=== PATIENT | male | born 1970 | race African-American/Black ===

== ENCOUNTER 2021-05-14 19:22 | Emergency (ER) | payer OTHER ==
[~2021-05-14] VITALS: Ht 193 cm; Wt 203.2 kg
--- NOTE | ~2021-05-14 | EMS ---
[address] [address] EMS Patient Care Report Name: LUIS M STONER Room #: REG Naeem#: [id number] Admission: 05/14/21 Attend Phys: Discharge: Date of : 66 Report #: [id number] THIS REPORT FOR: //name// Report Transmitted: 05/14/2021 20:01 EMS Care Summary [place], [place]/[facility] Incident [id number] @ 05/14/2021 18:40 Incident Location [address] [place] [id number] Patient LUIS M STONER Male, 50 Years 1970 Patient Address [address] [place] [id number] Patient History Hypertension (HTN),Type 2 Diabetes, Patient Allergies No known allergies, Patient Medications Insulin, Unknown, Chief Complaint HEADACHE Disposition Transported No Lights/[place] Dispatch Reason Diabetic Problem Transported To [facility] Narrative M36 dispatched on a diabetic problems. M36 arrived to find PT laying supine on front porch with P41 at PT side. PT stated diabetic problems as chief complaint. PT stated he "felt like his sugar got low, vision got spots, sat down on the steps because I was dizzy then I fell back." PT stated family on [address] [address] EMS Patient Care Report Name: LUIS M STONER Room #: REG Naeem#: [id number] Admission: 05/14/21 Attend Phys: Discharge: Date of : 66 Report #: [id number] scene gave PT "sugar water." PT denied neck pain. PT head negative for DCAPBTLS. PT stated main concern was headache. PT rated pain 10/10. PT described headache as spinning. PT denied being on blood thinners. PT assisted to stand and take steps to stretcher. PT sat down and was secured with seatbelts. PT stated the "last time I felt like this my sugar was low." PT denied loss of consciousness. PT stated use of oxygen with CPAP and as needed at home. PT stated he uses 5 lpm when he uses it. PT advised of high volume status at . PT chose to go to closest facility. PT vitals monitored en route including groundwater monitoring technician. PT report given. PT stood and pivoted to hospital bed with assistance. PT care and belongings transferred to ER staff without incident at [facility]. M36 placed back in service. Initial Vitals @19:12P: 88,R: 16,Pain: 9/10,GCS: 15,CO: 2,SpO2: 95,MT Suspected: false @19:09P: 86,R: 18,BP: 118/70,Pain: 10/10,GCS: 15,Glucose: 237,CO: 3,SpO2: 92,Revised Trauma: 12, @PTAP: 80,R: 18,BP: 177/82,Pain: 10,GCS: 15,Glucose: 267,SpO2: 92,Revised Trauma: 12, @19:03P: 86,R: 18,BP: 128/58,Pain: 10/10,GCS: 15,CO: 0,SpO2: 90,Revised Trauma: 12,MT Suspected: false Assessments @18:51MENTAL:Person Oriented,Time Oriented,Event Oriented,Place Oriented,SKIN:Diaphoresis,HEENT:LUNG SOUNDS:General: Nausea,ABDOMEN:General: Nausea,PELVIS//GI:Incontinence,EXTREMITIES:PULSE:Radial: 2+ Normal,NEURO:@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 Impression Diabetic Hypoglycemia Procedures @19:0312-Lead ECGResponse: UnchangedSucceeded@19:1212-Lead ECGResponse: UnchangedSucceeded@18:553-Lead ECGResponse: UnchangedSucceeded@18:52ALS AssessmentResponse: UnchangedSucceeded@19:10Oxygen FlowRate: 4 Device: Nasal Cannula (NC) Response: UnchangedSucceeded@19:04Saline Lock 20cc (18 ga) Site: Forearm-LeftResponse: UnchangedSucceeded Timeline FULL STACK WEB DEVELOPER,BP: 177/82 M,PULSE: 80,RR: 18 R,SPO2: 92 Ox,ETCO2: ,B,PAIN: 10,GCS: 15, 18:38,Call Received 18:38,Dispatch Notified 18:40,Dispatched 18:41,En Route 18:50,On Scene [address] [address] EMS Patient Care Report Name: GEORGIANALUIS M K Room #: REG Naeem#: [id number] Admission: 05/14/21 Attend Phys: Discharge: Date of : 66 Report #: [id number] 18:51,At Patient 18:52,ALS Assessment,Response: UnchangedSucceeded, 18:55,3-Lead ECG,Response: UnchangedSucceeded, 19:03,12-Lead ECG,Response: UnchangedSucceeded, 19:03,BP: 128/58 M,PULSE: 86,RR: 18 R,SPO2: 90 Ox,ETCO2: ,BG: ,PAIN: 10,GCS: 15, 19:04,Saline Lock 20cc 18 ga Site: Forearm-Left,Response: UnchangedSucceeded, 19:04,Depart Scene 19:09,BP: 118/70 M,PULSE: 86,RR: 18 R,SPO2: 92 Ox,ETCO2: ,B,PAIN: 10,GCS: 15, 19:10,Oxygen FlowRate: 4 Device: Nasal Cannula (NC) Response: UnchangedSucceeded, 19:12,12-Lead ECG,Response: UnchangedSucceeded, 19:12,BP: / M,PULSE: 88,RR: 16 R,SPO2: 95 Ox,ETCO2: ,BG: ,PAIN: 9,GCS: 15, 19:18,At Destination 19:36,Call Closed Disclaimer v1.1 Copyright 2020 [employer] This EMS Care Summary contains data elements from the applicable legal record (which may be displayed differently). It is designed to provide pertinent information for the following purposes: continuity of care, clinical quality, and state data reporting. The complete legal record is available to ED staff and administrators of the receiving hospital in [employer]'s Patient Tracker. All data is provided "as is."
[2021-05-14 20:05] LABS: ABSOLUTE NEUTROPHILS 4.3 thou/uL (1.4-8.2); BASOPHILS 1.1 % (0.0-2.0); EOSINOPHILS 3.4 % (0.0-3.0); HEMATOCRIT 38.5 % (42.0-52.0); HEMOGLOBIN 12.6 gm/dL (14.0-18.0); LYMPHOCYTES 31.6 % (24.0-44.0); MCH 31.3 pg (26.0-34.0); MCHC 32.6 g/dL (28.0-37.0); MCV 95.9 fL (80.0-100.0); MONOCYTES 5.7 % (1.0-8.0); PLATELET COUNT 247 thou/uL (150-400); POLYS 58.2 % (36.0-66.0); RBC 4.02 mil/uL (4.50-6.00); RDW 13.6 % (10.5-14.5); WBC 7.3 thou/uL (4.0-11.0)
[2021-05-14 20:13] LABS: ANION GAP 10 mmol/L (7-16); BUN 22 mg/dL (7-18); CHLORIDE 102 mmol/L (98-107); CO2 27 mmol/L (21-32); CREATININE 1.6 mg/dL (0.7-1.3); GLUCOSE 245 mg/dL (74-106); POTASSIUM 4.6 mmol/L (3.5-5.1); SODIUM 139 mmol/L (136-145)
[2021-05-14 20:24] LABS: ALBUMIN 3.9 g/dL (3.4-5.0); LIPASE 81 U/L (73-393); SGOT 23 U/L (15-37); SGPT 25 U/L (30-65); TOTAL BILIRUBIN 0.4 mg/dL (0.2-1.0); TOTAL PROTEIN 8.2 g/dL (6.4-8.2); TROPONIN-I <0.06 ng/mL (<0.06)
[2021-05-14 23:05] VITALS: BP 162/91
--- NOTE | 2021-05-16 14:26 | EKG ---
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
== END 2021-05-14 23:07 | disposition home or self-care (01) ==
LOC: ER 19:22
PROVIDERS: Emergency Medicine
DX: E11.649 Type 2 diabetes mellitus with hypoglycemia without coma (principal); R42 Dizziness and giddiness